=== PATIENT | female | born 1955 | race Caucasian/White ===

== ENCOUNTER 2018-05-31 04:28 | Emergency (ER) | payer OTHER ==
[~2018-05-31] VITALS: Ht 152.4 cm; Wt 70.8 kg
[2018-05-31 04:44] VITALS: Ht 152.4 cm; Wt 70.8 kg
[2018-05-31 07:03] VITALS: BP 141/79
== END 2018-05-31 07:03 | disposition home or self-care (01) ==
LOC: ED 04:28
DX: R11.10 Vomiting, unspecified (principal); R19.7 Diarrhea, unspecified; I10 Essential (primary) hypertension; R10.9 Unspecified abdominal pain; R14.0 Abdominal distension (gaseous); Z98.890 Other specified postprocedural states; Z90.49 Acquired absence of other specified parts of digestive tract; Z90.710 Acquired absence of both cervix and uterus; Z88.0 Allergy status to penicillin
CPT/HCPCS: Q0162